=== PATIENT | male | born 1970 | race Caucasian/White ===

== ENCOUNTER → 2019-09-08 | Outpatient (CLI) | payer BC ==
[2019-09-08 10:04] LABS: Basophils % (A) 0 %; Eosinophils % (A) 0 %; HCT 50.7 % (39.0-53.0); HGB 16.7 gm/dL (13.0-17.5); Lymphocytes # (A) 1.6 k/uL (1.0-4.8); Lymphocytes % (A) 16 %; MCH 29.3 pg (25.0-35.0); MCV 88.8 fL (80.0-100.0); Mean Platelet Volume 6.8; Monocytes # (A) 0.3 k/uL (0-1.0); Monocytes % (A) 3 %; Neutrophils # (A) 7.9 k/uL (1.3-7.7); Neutrophils % (A) 80 %; Platelet Count 291 k/uL (150-450); RBC 5.71 m/uL (4.30-5.90); RDW 13.4 % (11.5-15.5)
[2019-09-08 17:02] LABS: Anti-Smith Ab Interp NEGATIVE (NEGATIVE); Scleroderma SC-70 Ab <0.2 AI
[2019-09-08 17:12] LABS: Calcium 9.5 mg/dL (8.7-10.3); Rheumatoid Factor, Qnt 6 IU/mL (0-15)
[2019-09-08 17:17] LABS: Protein, Total 7.2 g/dL (6.2-8.2)
[2019-09-08 17:25] LABS: C Reactive Protein <0.4 mg/dL (0.0-0.8)
[2019-09-08 17:26] LABS: Thyroid Peroxidase Antibodies 30.3 U/mL (0.0-60.0)
[2019-09-08 17:28] LABS: Folate, Serum >24.0 ng/mL
[2019-09-09 09:17] LABS: Angiotensin-1 Converting Enz. 3 U/L (8-52)
[2019-09-09 13:56] LABS: C-ANCA <1:20 Titer (<1:20)
[2019-09-09 13:57] LABS: Gamma Globulin 1.22 g/dL (0.70-1.50)
== END | disposition home or self-care (01) ==
LOC: LABWHC1 09:25
PROVIDERS: ATTEND Otolaryngology Otolaryngology/Facial Plastic Surgery
DX: E03.9 Hypothyroidism, unspecified (principal); D64.9 Anemia, unspecified; E53.9 Vitamin B deficiency, unspecified; E55.9 Vitamin D deficiency, unspecified; D52.9 Folate deficiency anemia, unspecified; E06.9 Thyroiditis, unspecified; D82.4 Hyperimmunoglobulin E [IgE] syndrome; E21.3 Hyperparathyroidism, unspecified; E83.51 Hypocalcemia; M35.9 Systemic involvement of connective tissue, unspecified; M31.30 Wegener's granulomatosis without renal involvement; A53.9 Syphilis, unspecified; L94.0 Localized scleroderma [morphea]; D86.9 Sarcoidosis, unspecified; A69.20 Lyme disease, unspecified; D60.0 Chronic acquired pure red cell aplasia; M06.9 Rheumatoid arthritis, unspecified; M32.10 Systemic lupus erythematosus, organ or system involvement unspecified; M32.9 Systemic lupus erythematosus, unspecified; M35.00 Sjogren syndrome, unspecified; M46.90 Unspecified inflammatory spondylopathy, site unspecified; L95.9 Vasculitis limited to the skin, unspecified; D80.1 Nonfamilial hypogammaglobulinemia; R76.8 Other specified abnormal immunological findings in serum; R77.9 Abnormality of plasma protein, unspecified
CPT/HCPCS: 36415; 82164; 82306; 82310; 82607; 82746; 82785; 83516; 83970; 84165; 84439; 84443; 84481; 85025; 86038; 86140; 86162; 86235; 86255; 86376; 86431; 86618; 86780